=== PATIENT | male | born 1985 | race Caucasian/White ===

== ENCOUNTER → 2018-01-07 | Emergency (ER) | payer OTHER ==
[~2018-01-07] VITALS: Ht 185.4 cm; Wt 83.9 kg
== END | disposition home or self-care (01) ==
LOC: ER 22:57
DX: S91.111A Laceration without foreign body of right great toe without damage to nail, initial encounter (principal); W45.8XXA Other foreign body or object entering through skin, initial encounter; Y93.89 Activity, other specified; Y92.89 Other specified places as the place of occurrence of the external cause; Y99.8 Other external cause status